=== PATIENT | female | born 1965 | race Caucasian/White ===

== ENCOUNTER 2020-06-16 10:53 | Outpatient (CLI) | payer OTHER ==
[2020-06-16 12:00] LABS: Hemoglobin 14.7 g/dL (12.0-15.5); Mean Corpuscular HGB CONC 34.5 g/dL (32.0-36.0); Mean Corpuscular Hemoglobin 33.5 pg (27.0-33.0); Mean Platelet Volume 10.3 fl (7.4-10.4); Platelet Count 294 10x3/uL (150-450); RBC Distribution Width 13.2 % (11.5-14.5); Red Blood Cell (RBC) Count 4.39 10x6/uL (3.90-5.03); White Blood Cell (WBC) Count 8.9 10x3/uL (3.5-10.5)
[2020-06-16 12:35] LABS: Anion Gap 13 mmol/L (10-20); BUN (Urea Nitrogen) 11 mg/dL (9.8-20.1); Calc. Creatinine Clearance 0 mL/min (70-130); Calcium 9.3 mg/dL (7.8-10.44); Carbon Dioxide 29 mmol/L (22-29); Chloride 99 mmol/L (98-107); Glucose 96 mg/dL (70-105); Potassium 3.3 mmol/L (3.5-5.1); Sodium 138 mmol/L (136-145)
[2020-06-16 18:21] LABS: SARS-CoV-2 PCR by NAA Not Detected (NotDetected)
== END 2020-06-16 10:54 | disposition home or self-care (01) ==
LOC: LABBT 10:53
PROVIDERS: ATTEND Neurological Surgery
DX: Z01.818 Encounter for other preprocedural examination (principal); Z20.822 Contact with and (suspected) exposure to COVID-19; M47.12 Other spondylosis with myelopathy, cervical region
CPT/HCPCS: 80048; 85027; 87635; U0003; U0005

== ENCOUNTER 2020-06-30 10:47 | Outpatient (CLI) | payer OTHER ==
[2020-06-30 11:40] LABS: Hemoglobin 14.5 g/dL (12.0-15.5); Mean Corpuscular HGB CONC 34.7 g/dL (32.0-36.0); Mean Corpuscular Hemoglobin 33.6 pg (27.0-33.0); Mean Corpuscular Volume 96.8 fl (81.6-98.3); Mean Platelet Volume 10.3 fl (7.4-10.4); Platelet Count 256 10x3/uL (150-450); RBC Distribution Width 13.2 % (11.5-14.5); Red Blood Cell (RBC) Count 4.32 10x6/uL (3.90-5.03); White Blood Cell (WBC) Count 9.2 10x3/uL (3.5-10.5)
[2020-06-30 12:02] LABS: Anion Gap 13 mmol/L (10-20); BUN (Urea Nitrogen) 13 mg/dL (9.8-20.1); Calc. Creatinine Clearance 0 mL/min (70-130); Calcium 9.3 mg/dL (7.8-10.44); Carbon Dioxide 28 mmol/L (22-29); Chloride 97 mmol/L (98-107); Glucose 83 mg/dL (70-105); Sodium 135 mmol/L (136-145)
[2020-06-30 20:37] LABS: SARS-CoV-2 PCR by NAA Not Detected (NotDetected)
== END 2020-06-30 10:48 | disposition home or self-care (01) ==
LOC: LABBT 10:47
PROVIDERS: ATTEND Neurological Surgery
DX: Z01.818 Encounter for other preprocedural examination (principal); M47.12 Other spondylosis with myelopathy, cervical region; Z20.822 Contact with and (suspected) exposure to COVID-19
CPT/HCPCS: 80048; 85027; 87635; U0003; U0005

== ENCOUNTER 2020-07-05 06:04 | Observation (INO) | payer OTHER ==
[2020-06-18 11:34] VITALS: BMI 25.4
[2020-07-05] MEDS ORDERED: Fentanyl 100 MCG/2 ML VIAL ONE ×4 (06:37→11:00)
[2020-07-05] MEDS ORDERED: Lidocaine 2% Jelly 5 ML TUBE ONE (06:37)
[2020-07-05] MEDS ORDERED: Bupivacaine 0.25% HCL 30 ML VIAL ONE (06:47)
[2020-07-05] MEDS ORDERED: Lidocaine 1% w/Epinephrine 1:100K 20 ML VIAL ONE (06:47)
[2020-07-05] MEDS ORDERED: Promethazine HCl 25 MG/ML VIAL ONE (07:37)
[2020-07-05] MEDS ORDERED: Rocuronium Bromide 10 MG/ML (10ML VIAL) ONE (08:50)
[2020-07-05] MEDS ORDERED: ePHEDrine Sulfate 50 MG/10 ML VIAL ONE (08:50)
[2020-07-05] MEDS ORDERED: Glycopyrrolate 0.2 MG/ML 5 ML SYRINGE ONE (08:50)
[2020-07-05] MEDS ORDERED: PHENYLEPHRINE-NS 100 MCG/ML 10 ML SYRINGE ONE (08:50)
[2020-07-05] MEDS ORDERED: PROPOFOL 200 MG/20 ML VIAL ONE (08:50)
[2020-07-05] MEDS ORDERED: Lidocaine 1% PF 5 ML VIAL ONE (08:50)
[2020-07-05] MEDS ORDERED: Ketorolac Tromethamine 30 MG/ML VIAL ONE (08:50)
[2020-07-05] MEDS ORDERED: Dexamethasone 20 MG/5 ML VIAL ONE (08:50)
[2020-07-05] MEDS ORDERED: Promethazine HCl 25 MG/ML VIAL IM PRN ×2 (10:01→14:45)
[2020-07-05] MEDS ORDERED: Promethazine HCl 25 MG/ML VIAL SLOW IVP PRN (10:01)
[2020-07-05] MEDS ORDERED: Meperidine HCl/PF 25 MG/ML VIAL ONE (10:31)
[2020-07-05] MEDS ORDERED: ALPRAZolam 0.5 MG TAB PO PRN (14:36)
[2020-07-05] MEDS ORDERED: Promethazine 25 MG TAB PO PRN ×2 (14:38→14:45)
[2020-07-05] MEDS ORDERED: diphenhydrAMINE 25 MG CAP PO PRN (14:45)
[2020-07-05] MEDS ORDERED: Acetaminophen 650 MG Suppository PR PRN (14:45)
[2020-07-05] MEDS ORDERED: Meperidine HCl/PF 25 MG/ML VIAL SLOW IVP PRN (14:45)
[2020-07-05] MEDS ORDERED: Acetaminophen 325 MG TAB PO PRN (14:45)
[2020-07-05] MEDS ORDERED: Cyclobenzaprine 10 MG TAB PO PRN (14:45)
[2020-07-05] MEDS ORDERED: traMADol HCl 50 MG TAB PO PRN ×2 (14:45)
[2020-07-05] MEDS ORDERED: Milk Of Magnesia 30 ML UDCUP PO PRN (14:45)
[2020-07-05] MEDS ORDERED: diphenhydrAMINE 50 MG/ML VIAL IVP PRN (14:45)
[2020-07-05] MEDS ORDERED: Acetaminophen/Codeine 30-300mg Tablet PO PRN (14:45)
[2020-07-05] MEDS ORDERED: Mag-Al 1200 mg/1200 mg/30 ML UDCUP PO PRN (14:45)
[2020-07-05] MEDS: Sodium Chloride 0.9% 1,000 ML IV SCH (15:24)
[2020-07-05] MEDS: Acetaminophen/Codeine 30-300mg Tablet PO PRN ×2 (15:28→21:11)
[2020-07-05] MEDS: Ketorolac Tromethamine 30 MG/ML VIAL IVP SCH (17:33)
[2020-07-05] MEDS: CEFAZOLIN 2 GM in Premix Bag 1 BAG IVPB SCH (17:34)
[2020-07-05] MEDS ORDERED: Pregabalin 50 MG CAP PO SCH ×2 (21:00)
[2020-07-05] MEDS ORDERED: CEFAZOLIN 2 GM in Premix Bag 1 BAG IVPB SCH (22:00)
[2020-07-06] MEDS: CEFAZOLIN 2 GM in Premix Bag 1 BAG IVPB SCH ×2 (01:40→09:34)
[2020-07-06] MEDS: Sodium Chloride 0.9% 1,000 ML IV SCH (06:05)
[2020-07-06] MEDS: Acetaminophen/Codeine 30-300mg Tablet PO PRN ×2 (06:06→11:22)
[2020-07-06] MEDS: Ketorolac Tromethamine 30 MG/ML VIAL IVP SCH ×2 (06:06)
[2020-07-06 07:46] VITALS: BP 136/72; TEMP 97.6
[2020-07-06] MEDS ORDERED: Pregabalin 50 MG CAP PO SCH ×2 (09:00)
[2020-07-06] MEDS ORDERED: Amlodipine 5 MG TAB PO SCH ×2 (09:00)
[2020-07-06] MEDS ORDERED: Lisinopril/Hydrochlorothiazide 20 mg/12.5 mg Tablet PO SCH (09:00)
== END 2020-07-06 11:40 | disposition home or self-care (01) ==
LOC: SDC 06:04 → SURG A 10:26
PROVIDERS: ADMIT Neurological Surgery; ATTEND Neurological Surgery
PROC: 0RG10A0 Fusion of Cervical Vertebral Joint with Interbody Fusion Device, Anterior Approach, Anterior Column, Open Approach (ICD-10-PCS; principal; 2020-07-06)
PROC: 0RT30ZZ Resection of Cervical Vertebral Disc, Open Approach (ICD-10-PCS; 2020-07-06)
DX: M47.22 Other spondylosis with radiculopathy, cervical region (principal); E78.5 Hyperlipidemia, unspecified; I25.10 Atherosclerotic heart disease of native coronary artery without angina pectoris; I25.2 Old myocardial infarction; G40.909 Epilepsy, unspecified, not intractable, without status epilepticus; F17.210 Nicotine dependence, cigarettes, uncomplicated; K21.9 Gastro-esophageal reflux disease without esophagitis; K76.9 Liver disease, unspecified; Z79.899 Other long term (current) drug therapy; Z88.1 Allergy status to other antibiotic agents; Z88.2 Allergy status to sulfonamides; Z88.5 Allergy status to narcotic agent; Z88.6 Allergy status to analgesic agent; Z95.5 Presence of coronary angioplasty implant and graft
CPT/HCPCS: 76000; 96374; 96375; 96376; C1713; C1776; G0378; J0690; J1100; J1885; J2175; J2550; J2704; J3010; J3490; S0020

== ENCOUNTER 2020-07-27 12:31 | Outpatient (CLI) | payer OTHER | END 2020-07-27 12:32 | disposition home or self-care (01) | LOC: TBSIIMAG 12:31 | PROVIDERS: ATTEND Physician Assistant | DX: M47.12 Other spondylosis with myelopathy, cervical region (principal); Z98.890 Other specified postprocedural states | CPT/HCPCS: 72040 ==

== ENCOUNTER 2021-08-03 12:53 | Outpatient (CLI) | payer OTHER ==
[2021-08-03 13:30] LABS: Hemoglobin 14.7 g/dL (12.0-15.5); Mean Corpuscular HGB CONC 35.3 g/dL (32.0-36.0); Mean Corpuscular Hemoglobin 34.4 pg (27.0-33.0); Mean Corpuscular Volume 97.7 fl (81.6-98.3); Mean Platelet Volume 10.1 fl (7.4-10.4); Platelet Count 192 10x3/uL (150-450); RBC Distribution Width 13.4 % (11.5-14.5); Red Blood Cell (RBC) Count 4.27 10x6/uL (3.90-5.03); White Blood Cell (WBC) Count 5.7 10x3/uL (3.5-10.5)
[2021-08-03 13:43] LABS: Anion Gap 15 mmol/L (10-20); BUN (Urea Nitrogen) 19 mg/dL (9.8-20.1); Calc. Creatinine Clearance 0 mL/min (70-130); Calcium 9.1 mg/dL (7.8-10.44); Carbon Dioxide 31 mmol/L (22-29); Chloride 92 mmol/L (98-107); Glucose 111 mg/dL (70-105); Potassium 3.6 mmol/L (3.5-5.1); Sodium 134 mmol/L (136-145)
== END 2021-08-03 12:54 | disposition home or self-care (01) ==
LOC: LABBT 12:53
PROVIDERS: ATTEND Neurological Surgery
DX: Z01.812 Encounter for preprocedural laboratory examination (principal); M47.12 Other spondylosis with myelopathy, cervical region; Z20.822 Contact with and (suspected) exposure to COVID-19
CPT/HCPCS: 80048; 85027; U0003; U0005

== ENCOUNTER 2021-08-03 13:30 | Inpatient (IN) | payer OTHER ==
[2021-08-04 13:59] VITALS: BMI 25.1
[2021-08-08] MEDS ORDERED: CEFAZOLIN 2 GM VIAL ONE (10:22)
[2021-08-08] MEDS ORDERED: Sodium Chloride 0.9% 100 ML ONE (10:22)
[2021-08-08] MEDS ORDERED: Lidocaine 1% MPF 2 ML VIAL ONE (10:22)
[2021-08-08] MEDS ORDERED: Cyclobenzaprine 10 MG TAB PO PRN (11:07)
[2021-08-08] MEDS ORDERED: Acetaminophen/Codeine 30-300mg Tablet PO PRN (11:07)
[2021-08-08] MEDS ORDERED: Mag-Al 1200 mg/1200 mg/30 ML UDCUP PO PRN (11:07)
[2021-08-08] MEDS ORDERED: traMADol HCl 50 MG TAB PO PRN (11:07)
[2021-08-08] MEDS ORDERED: diphenhydrAMINE 50 MG/ML VIAL IVP PRN (11:07)
[2021-08-08] MEDS ORDERED: Fentanyl 100 MCG/2 ML VIAL SLOW IVP PRN (11:07)
[2021-08-08] MEDS ORDERED: Propofol 500 MG/50 ML VIAL ONE (12:14)
[2021-08-08] MEDS ORDERED: HYDROmorphone 2 MG/ML VIAL ONE (12:14)
[2021-08-08] MEDS ORDERED: Rocuronium Bromide 50 MG/5 ML VIAL ONE (12:17)
[2021-08-08] MEDS ORDERED: Esmolol 100 MG/10 ML VIAL ONE ×2 (12:21→13:43)
[2021-08-08] MEDS ORDERED: Fentanyl 100 MCG/2 ML VIAL ONE ×3 (12:34→15:57)
[2021-08-08] MEDS ORDERED: fentaNYL Citrate/PF 100 MCG/2 ML SYRINGE ONE ×2 (13:38→14:44)
[2021-08-08] MEDS ORDERED: Lidocaine 1% PF 5 ML VIAL ONE (13:43)
[2021-08-08] MEDS ORDERED: Glycopyrrolate 0.2 MG/ML 5 ML SYRINGE ONE (13:43)
[2021-08-08] MEDS ORDERED: Rocuronium Bromide 10 MG/ML (10ML VIAL) ONE (13:43)
[2021-08-08] MEDS ORDERED: Ketorolac Tromethamine 30 MG/ML VIAL ONE (13:43)
[2021-08-08] MEDS ORDERED: ePHEDrine 50 MG/ML VIAL ONE (13:43)
[2021-08-08] MEDS ORDERED: Dexamethasone 20 MG/5 ML VIAL ONE (13:43)
[2021-08-08] MEDS ORDERED: PROPOFOL 200 MG/20 ML VIAL ONE (13:43)
[2021-08-08] MEDS ORDERED: Meperidine HCl/PF 25 MG/ML VIAL SLOW IVP PRN (14:41)
[2021-08-08] MEDS ORDERED: Promethazine HCl 25 MG/ML VIAL IVPB PRN (14:41)
[2021-08-08] MEDS ORDERED: Promethazine HCl 25 MG/ML VIAL ONE (17:43)
[2021-08-08] MEDS: Sodium Chloride 0.9% 1,000 ML IV SCH (19:25)
[2021-08-08] MEDS: CEFAZOLIN 2 GM in Sodium Chloride 0.9% 100 ML IVPB SCH ×2 (19:41→20:25)
[2021-08-08] MEDS: Acetaminophen/Codeine 30-300mg Tablet PO PRN (20:26)
[2021-08-08] MEDS: Promethazine 25 MG TAB PO PRN (20:29)
[2021-08-08] MEDS ORDERED: Atorvastatin Calcium 10 MG TAB PO SCH (21:00)
[2021-08-08] MEDS ORDERED: Pregabalin 50 MG CAP PO SCH (21:00)
[2021-08-09] MEDS ORDERED: CEFAZOLIN 2 GM VIAL ONE (02:54)
[2021-08-09] MEDS: CEFAZOLIN 2 GM in Sodium Chloride 0.9% 100 ML IVPB SCH ×2 (03:07→10:26)
[2021-08-09] MEDS: Acetaminophen/Codeine 30-300mg Tablet PO PRN ×3 (03:09→11:21)
[2021-08-09] MEDS: Promethazine 25 MG TAB PO PRN ×2 (03:09→08:25)
[2021-08-09] MEDS: Sodium Chloride 0.9% 1,000 ML IV SCH (03:13)
[2021-08-09] MEDS ORDERED: Pregabalin 50 MG CAP PO SCH (09:00)
[2021-08-09] MEDS ORDERED: Lisinopril/Hydrochlorothiazide 20 mg/12.5 mg Tablet PO SCH (09:00)
[2021-08-09] MEDS ORDERED: Amlodipine 5 MG TAB PO SCH (09:00)
[2021-08-09 12:26] VITALS: BP 161/75; TEMP 97.6
== END 2021-08-09 12:20 | disposition home or self-care (01) | DRG 473 ==
LOC: SURG A 08-08 08:58 → SJJU 08-08 19:07
PROVIDERS: ADMIT Neurological Surgery; ATTEND Neurological Surgery
PROC: 0RG20A0 Fusion of 2 or more Cervical Vertebral Joints with Interbody Fusion Device, Anterior Approach, Anterior Column, Open Approach (ICD-10-PCS; principal; 2021-08-08)
PROC: 0RB30ZZ Excision of Cervical Vertebral Disc, Open Approach (ICD-10-PCS; 2021-08-08)
DX: M47.12 Other spondylosis with myelopathy, cervical region (principal); Z88.2 Allergy status to sulfonamides; Z88.1 Allergy status to other antibiotic agents; Z88.8 Allergy status to other drugs, medicaments and biological substances; Z88.5 Allergy status to narcotic agent
CPT/HCPCS: 76000; C1713; J0690; J1100; J1170; J1885; J2550; J2704; J3010; J3490; J7050; Q0169